=== PATIENT | male | born 1995 ===

== ENCOUNTER → 2023-06-26 | Outpatient (CLI) | payer OTHER ==
[2023-06-26 14:19] LABS: INR 1.02 (0.9-1.15); Partial Thromboplastin Time 32.6 SEC (24.5-34.5); Prothrombin Time 10.7 sec (9.3-11.8)
== END | disposition home or self-care (01) ==
LOC: LAB 13:53
PROVIDERS: ATTEND Nurse Practitioner
DX: I74.9 Embolism and thrombosis of unspecified artery (principal)
CPT/HCPCS: 36415; 85610; 85730